=== PATIENT | male | born 1945 | race Caucasian/White ===

== ENCOUNTER 2022-06-12 03:03 | Inpatient (IN) ==
[2022-06-12] MEDS ORDERED: Naloxone 0.4 MG/ML INJ IVP PRN (06:37)
[2022-06-12] MEDS ORDERED: Ondansetron ODT 4 MG TAB.RAPDIS SL PRN (06:37)
[2022-06-12] MEDS ORDERED: Acetaminophen 325 MG TABLET PO PRN (06:37)
[2022-06-12 07:35] LABS: Basophils % 0.3 %; Eosinophils % 0.8 %; Hematocrit 39.5 % (37.5-50.1); Hemoglobin 13.5 g/dL (12.9-16.9); Immature Granulocytes % 0.3 % (0-4); Lymphocytes # 0.6 K/mcL (0.6-4.6); Lymphocytes % 16.1 %; Mean Corpuscular HGB Conc 34.2 g/dL (31.6-35.5); Mean Corpuscular Hemoglobin 30.6 pg (28.0-33.3); Mean Corpuscular Volume 89.6 fL (83.0-100.0); Neutrophils # 2.7 K/mcL (1.6-8.9); Red Blood Count 4.41 M/mcL (4.19-5.50); Red Cell Distribution Width 12.3 % (11.5-14.5); Segmented Neutrophils % 68.5 %; White Blood Count 3.9 K/mcL (4.3-11.1)
[2022-06-12 07:52] LABS: INR 2.7; Prothrombin Time 30.4 Seconds (9.4-12.1)
[2022-06-12 07:53] LABS: Monocytes # 0.6 K/mcL (0.0-1.3); Platelet Count 86 K/mcL (140-400)
[2022-06-12 08:22] LABS: Calcium 8.5 mg/dL (8.6-10.3); Potassium 3.3 mEq/L (3.5-5.1)
[2022-06-12] MEDS ORDERED: Nitroglycerin 0.4 MG TAB.SUBL SL PRN (10:39)
[2022-06-12] MEDS ORDERED: Gabapentin 300 MG CAPSULE PO SCH (10:40)
[2022-06-12] MEDS ORDERED: *HR* OxyCODONE/APAP 5/325 TABLET PO PRN (10:46)
[2022-06-12] MEDS: amLODIPine 5 MG TABLET PO SCH (11:03)
[2022-06-12] MEDS ORDERED: [UNRECOGNIZED DRUG - OTHER] PO SCH (12:00)
[2022-06-12] MEDS ORDERED: KCL PO SCH (12:00)
[2022-06-12] MEDS ORDERED: PEG PO SCH (12:00)
[2022-06-12] MEDS ORDERED: *HR* Warfarin 5 MG TABLET PO SCH (14:45)
[2022-06-12] MEDS: Gabapentin 300 MG CAPSULE PO SCH ×2 (15:48→21:07)
[2022-06-12] MEDS ORDERED: *HR* Warfarin 5 MG TABLET PO ONE (18:00)
[2022-06-12] MEDS ORDERED: Warfarin perPT PO PRN (18:00)
[2022-06-12] MEDS: traZODone 50 MG TABLET PO SCH (21:07)
[2022-06-12] MEDS: *HR* OxyCODONE/APAP 5/325 TABLET PO PRN (21:07)
[2022-06-13 06:41] LABS: INR 2.4; Prothrombin Time 26.2 Seconds (9.4-12.1)
[2022-06-13] MEDS: Gabapentin 300 MG CAPSULE PO SCH ×3 (08:31→20:16)
[2022-06-13] MEDS: amLODIPine 5 MG TABLET PO SCH (08:31)
[2022-06-13] MEDS ORDERED: *HR* Warfarin 7.5 MG TABLET PO SCH (14:44)
[2022-06-13] MEDS ORDERED: *HR* Warfarin 7.5 MG TABLET PO ONE (18:00)
[2022-06-13] MEDS: traZODone 50 MG TABLET PO SCH (20:16)
[2022-06-13] MEDS: *HR* OxyCODONE/APAP 5/325 TABLET PO PRN (20:19)
[2022-06-14] MEDS ORDERED: Haloperidol Lactate 5 MG/ML VIAL IVP ONE (01:33)
[2022-06-14] MEDS ORDERED: Haloperidol Lactate 5 MG/ML VIAL IM ONE ×3 (01:37→05:53)
[2022-06-14] MEDS: QUEtiapine Fumarate 25 MG TABLET PO SCH ×2 (01:46→20:16)
[2022-06-14] MEDS ORDERED: *HR* LORazepam 2 MG/ML VIAL IM STA (03:08)
[2022-06-14 08:20] LABS: Basophils % 0.3 %; Eosinophils % 0.3 %; Hematocrit 38.3 % (37.5-50.1); Hemoglobin 13.2 g/dL (12.9-16.9); Immature Granulocytes % 0.3 % (0-4); Lymphocytes # 0.7 K/mcL (0.6-4.6); Mean Corpuscular HGB Conc 34.5 g/dL (31.6-35.5); Mean Corpuscular Hemoglobin 30.3 pg (28.0-33.3); Mean Platelet Volume 12.7 fL (9.4-12.4); Monocytes # 0.6 K/mcL (0.0-1.3); Monocytes % 17.5 %; Red Blood Count 4.35 M/mcL (4.19-5.50); Red Cell Distribution Width 12.4 % (11.5-14.5); Segmented Neutrophils % 62.6 %; White Blood Count 3.4 K/mcL (4.3-11.1)
[2022-06-14 08:28] LABS: Neutrophils # 2.1 K/mcL (1.6-8.9); Platelet Count 61 K/mcL (140-400)
[2022-06-14 08:39] LABS: Prothrombin Time 22.7 Seconds (9.4-12.1)
[2022-06-14 08:49] LABS: Calcium 8.3 mg/dL (8.6-10.3); Magnesium 1.6 mg/dL (1.6-2.6); Potassium 3.6 mEq/L (3.5-5.1)
[2022-06-14] MEDS ORDERED: Ziprasidone 10 MG, Closed System Device IM Kit 1 EACH in Water for inj. (sterile) 0.5 ML IM ONE (09:59)
[2022-06-14] MEDS: amLODIPine 5 MG TABLET PO SCH (10:32)
[2022-06-14] MEDS: Gabapentin 300 MG CAPSULE PO SCH ×3 (10:32→20:16)
[2022-06-14] MEDS: *HR* OxyCODONE/APAP 5/325 TABLET PO PRN (16:06)
[2022-06-14] MEDS ORDERED: *HR* LORazepam 2 MG/ML VIAL IVP ONE (17:14)
[2022-06-14] MEDS: Neosporin OINT 1 APPL PACKET TP SCH (17:33)
[2022-06-14] MEDS ORDERED: *HR* Warfarin 7.5 MG TABLET PO ONE (18:00)
[2022-06-14] MEDS: Thiamine (B-1) 100 MG, Folic Acid 1 MG, MVI, adult with vitamin K 10 ML in 0.9 % Sodi... IVPB SCH (19:12)
[2022-06-14] MEDS: traZODone 50 MG TABLET PO SCH (20:16)
[2022-06-14 20:46] LABS: Bilirubin,Urine Small (Negative); Blood,Urine Small (Negative); Clarity,Urine Clear (Clear); Color,Urine Yellow (Yellow); Glucose,Urine (UA) Normal (Normal); Ketones,Urine 40 mg/dL (Negative); Leukocyte Esterase,Urine Negative (Negative); Nitrite,Urine Negative (Negative); Protein,Urine 30 mg/dL (Neg-Trace); Urobilinogen,Urine >=8.0 mg/dL (Normal)
[2022-06-14 21:02] LABS: Bacteria,Urine Few per hpf (None-Few)
[2022-06-15] MEDS: Neosporin OINT 1 APPL PACKET TP SCH ×3 (00:11→16:39)
[2022-06-15] MEDS: Gabapentin 300 MG CAPSULE PO SCH ×5 (00:12→22:25)
[2022-06-15 07:39] LABS: INR 1.8; Prothrombin Time 20.5 Seconds (9.4-12.1)
[2022-06-15] MEDS: *HR* OxyCODONE/APAP 5/325 TABLET PO PRN (08:28)
[2022-06-15] MEDS: amLODIPine 5 MG TABLET PO SCH (08:30)
[2022-06-15 09:39] LABS: ABG Base Excess -3 mEq/L (-2 to 3); ABG HCO3 18 mEq/L (21-27); ABG Oxygen Saturation 96 % (95-98); ABG PCO2 24 mmHg (35-45); ABG PO2 70 mmHg (85-104); ABG TCO2 19 mEq/L (20-26)
[2022-06-15] MEDS ORDERED: Iopamidol - 370 500 ML MLS IVP ONE (09:44)
[2022-06-15] MEDS ORDERED: *HR* LORazepam 2 MG/ML VIAL IVP ONE ×2 (09:53→16:19)
[2022-06-15 09:56] LABS: Basophils % 0.5 %; Eosinophils % 0.3 %; Hematocrit 39.7 % (37.5-50.1); Hemoglobin 13.8 g/dL (12.9-16.9); Immature Granulocytes % 0.3 % (0-4); Lymphocytes # 0.9 K/mcL (0.6-4.6); Lymphocytes % 22.6 %; Mean Corpuscular HGB Conc 34.8 g/dL (31.6-35.5); Mean Corpuscular Hemoglobin 30.6 pg (28.0-33.3); Monocytes # 0.6 K/mcL (0.0-1.3); Monocytes % 15.5 %; Neutrophils # 2.3 K/mcL (1.6-8.9); Red Blood Count 4.51 M/mcL (4.19-5.50); Red Cell Distribution Width 12.3 % (11.5-14.5); Segmented Neutrophils % 60.8 %; White Blood Count 3.8 K/mcL (4.3-11.1)
[2022-06-15 09:58] LABS: Platelet Count 66 K/mcL (140-400)
[2022-06-15 10:04] LABS: Calcium 8.4 mg/dL (8.6-10.3); Potassium 3.5 mEq/L (3.5-5.1)
[2022-06-15] MEDS: Thiamine (B-1) 100 MG, Folic Acid 1 MG, MVI, adult with vitamin K 10 ML in 0.9 % Sodi... IVPB SCH (16:37)
[2022-06-15] MEDS ORDERED: *HR* Warfarin 7.5 MG TABLET PO ONE (18:00)
[2022-06-15] MEDS ORDERED: D5% in 0.45% NACL 1,000 ML IVC SCH (20:15)
[2022-06-15] MEDS: traZODone 50 MG TABLET PO SCH (22:25)
[2022-06-15] MEDS: QUEtiapine Fumarate 25 MG TABLET PO SCH (22:25)
[2022-06-15] MEDS ORDERED: Acetaminophen IV 1,000 MG/100 ML BAG IVPB ONE (23:49)
[2022-06-15] MEDS ORDERED: *HR* LORazepam 2 MG/ML VIAL IM ONE (23:59)
[2022-06-16] MEDS ORDERED: Acetaminophen IV 1,000 MG/100 ML BAG IVPB ONE ×3 (00:24→16:14)
[2022-06-16] MEDS: Neosporin OINT 1 APPL PACKET TP SCH ×3 (02:58→16:00)
[2022-06-16] MEDS ORDERED: Morphine Sulfate 2 MG/ML SYRINGE IVP ONE (03:17)
[2022-06-16 07:52] LABS: Basophils % 0.3 %; Eosinophils # 0.1 K/mcL (0.0-0.6); Eosinophils % 4.1 %; Hematocrit 38.5 % (37.5-50.1); Hemoglobin 13.3 g/dL (12.9-16.9); Immature Granulocytes % 0.3 % (0-4); Lymphocytes # 0.5 K/mcL (0.6-4.6); Lymphocytes % 14.9 %; Mean Corpuscular HGB Conc 34.5 g/dL (31.6-35.5); Mean Corpuscular Hemoglobin 30.3 pg (28.0-33.3); Mean Corpuscular Volume 87.7 fL (83.0-100.0); Mean Platelet Volume 13.1 fL (9.4-12.4); Monocytes # 0.4 K/mcL (0.0-1.3); Monocytes % 13.3 %; Red Blood Count 4.39 M/mcL (4.19-5.50); Red Cell Distribution Width 12.3 % (11.5-14.5); Segmented Neutrophils % 67.1 %; White Blood Count 3.2 K/mcL (4.3-11.1)
[2022-06-16 08:05] LABS: BUN/Creatinine Ratio 15 (6-26); Blood Urea Nitrogen 13 mg/dL (8-23); Calcium 8.3 mg/dL (8.6-10.3); Chloride 105 mEq/L (98-107); Glucose 106 mg/dL (70-105); Osmolality,Calculated 285 (280-300); Potassium 3.3 mEq/L (3.5-5.1); Sodium 137 mEq/L (136-145)
[2022-06-16 08:14] LABS: Neutrophils # 2.2 K/mcL (1.6-8.9); Platelet Count 65 K/mcL (140-400)
[2022-06-16 08:20] LABS: Carbon Dioxide 24 mEq/L (23-29)
[2022-06-16 08:27] LABS: INR 1.7
[2022-06-16] MEDS: Gabapentin 300 MG CAPSULE PO SCH ×3 (10:10→17:14)
[2022-06-16] MEDS: amLODIPine 5 MG TABLET PO SCH (10:10)
[2022-06-16] MEDS ORDERED: *HR* HYDROmorphone (PF) 1 MG/ML SYRINGE IVP PRN (10:27)
[2022-06-16 11:27] LABS: Albumin 3.7 g/dL (3.5-5.7); Albumin/Globulin Ratio 1.3 (1.1-2.2); Bilirubin,Direct 0.4 mg/dL (0.0-0.2); Bilirubin,Indirect 2.3 mg/dL (0.0-1.0); Bilirubin,Total 2.7 mg/dL (0.3-1.0); Globulin 2.8 g/dL (2.4-3.5); Total Protein 6.5 g/dL (6.4-8.9)
[2022-06-16] MEDS ORDERED: *HR* LORazepam 2 MG/ML VIAL IVP PRN (13:14)
[2022-06-16] MEDS ORDERED: Potassium Chloride 40 MEQ in D5% in 0.45% NACL 1,000 ML IVC SCH (14:00)
[2022-06-16] MEDS ORDERED: D5% in 0.45% NACL w KCl 20 MEQ/1,000 ML MLS IVC SCH (14:00)
[2022-06-16] MEDS ORDERED: ChlorproMAZINE 25 MG/ML AMPUL IM ONE (14:16)
[2022-06-16 16:01] VITALS: BP 107/70; PULSE 119; RESP 19; TEMP 99.6; O2SAT 90
[2022-06-16] MEDS ORDERED: *HR* Metoprolol 5 MG/5 ML VIAL IVP PRN (16:13)
[2022-06-16] MEDS: traZODone 50 MG TABLET PO SCH (17:18)
[2022-06-16] MEDS ORDERED: diazePAM 10 MG/2 ML SYRINGE IVP PRN (17:42)
[2022-06-16] MEDS ORDERED: *HR* Warfarin 2 MG TABLET PO ONE (18:00)
[2022-06-16] MEDS: Thiamine (B-1) 100 MG, Folic Acid 1 MG, MVI, adult with vitamin K 10 ML in 0.9 % Sodi... IVPB SCH (18:13)
== END 2022-06-16 20:25 | disposition short-term general hospital (02) | DRG 177 ==
LOC: INPPIK
PROVIDERS: ADMIT Student in an Organized Health Care Education/Training Program; ATTEND Student in an Organized Health Care Education/Training Program